=== PATIENT | female | born 1945 | race Caucasian/White ===

== ENCOUNTER 2017-05-14 14:41 | Emergency (ER) | payer OTHER ==
[2017-05-14] MEDS: morphine 2 MG INJ IV (17:53)
[2017-05-14] MEDS: CEFEPIME 2GM/50 ML (PMX) 50 ML IVPB (17:54)
[2017-05-14] MEDS: ONDANSETRON 4 MG INJ IV (17:54)
[2017-05-14] MEDS: SODIUM CHLORIDE 0.9% 1L BAG IV* (17:54)
[2017-05-14 18:07] LABS: ADD MAN DIFF? NO
[2017-05-14 18:09] LABS: ABNORMAL IP MESSAGE 1; BASOPHILS % 0.4 % (0.0-2.0); EOSINOPHILS # 0.1 10^3/ul (0.0-0.5); EOSINOPHILS % 0.5 % (0.0-7.0); HEMATOCRIT 47.2 % (37.0-47.0); HEMOGLOBIN 14.8 g/dl (12.0-16.0); LYMPHOCYTES # 2.7 10^3/ul (0.8-2.9); LYMPHOCYTES % 28.4 % (15.0-51.0); MEAN CORPUSCULAR HEMOGLOBIN 24.4 pg (29.0-33.0); MEAN CORPUSCULAR HGB CONC 31.4 g/dl (32.0-37.0); MEAN CORPUSCULAR VOLUME 77.8 fl (82.0-101.0); MONOCYTE # 0.7 10^3/ul (0.3-0.9); MONOCYTES % 7.9 % (0.0-11.0); NEUTROPHIL # 5.9 10^3/ul (1.6-7.5); NEUTROPHILS % 62.6 % (39.0-77.0); PLATELET COUNT 201 10^3/UL (140-415); RED BLOOD COUNT 6.07 10^6/ul (4.20-5.40); RED CELL DISTRIBUTION WIDTH 18.2 % (11.5-14.5)
[2017-05-14 18:09] LABS: WHITE BLOOD COUNT 9.4 10^3/ul (4.8-10.8)
[2017-05-14 18:14] LABS: MEAN PLATELET VOLUME 12.8 fl (7.4-10.4); POSITIVE DIFF @See below
[2017-05-14 18:23] LABS: LACTIC ACID 1.4 mmol/L (0.5-2.0)
[2017-05-14 18:26] LABS: INR 1.06; PARTIAL THROMBOPLASTIN TIME 30.9 Sec (25.0-35.0); PROTIME 13.9 Sec (11.9-14.9); PT RATIO 1.1
[2017-05-14 18:27] LABS: ALANINE AMINOTRANSFERASE 69 IU/L (13-69); ALBUMIN 4.4 g/dl (3.3-4.9); ALKALINE PHOSPHATASE 79 IU/L (42-121); ANION GAP 14 (8-16); ASPARTATE AMINO TRANSFERASE 63 IU/L (15-46); BILIRUBIN,INDIRECT 0.3 mg/dl (0-1.1); BILIRUBIN,TOTAL 0.3 mg/dl (0.2-1.3); BLOOD UREA NITROGEN 10 mg/dl (7-20); CALCIUM 8.6 mg/dl (8.4-10.2); CARBON DIOXIDE 25 mmol/L (21-31); CHLORIDE 103 mmol/L (97-110); CREATININE 0.75 mg/dl (0.44-1.00); GLUCOSE 123 mg/dl (70-220); POTASSIUM 3.4 mmol/L (3.5-5.1); SODIUM 139 mmol/L (135-144); TOTAL PROTEIN 8.8 g/dl (6.1-8.1)
[2017-05-14 18:39] LABS: TROPONIN-I < 0.012 ng/ml (0.00-0.12)
[2017-05-14 19:52] LABS: LACTIC ACID 1.5 mmol/L (0.5-2.0)
[2017-05-14 20:16] LABS: ADD UMIC NO; UR ASCORBIC ACID NEGATIVE (NEGATIVE); UR BILIRUBIN (Dip) NEGATIVE (NEGATIVE); UR BLOOD (Dip) NEGATIVE (NEGATIVE); UR CLARITY CLEAR (CLEAR); UR COLOR STRAW (YELLOW); UR GLUCOSE (Dip) NEGATIVE (NEGATIVE); UR KETONES (Dip) TRACE mg/dL (NEGATIVE); UR LEUKOCYTE ESTERASE (Dip) NEGATIVE Leu/ul (NEGATIVE); UR NITRITE (Dip) NEGATIVE (NEGATIVE); UR SPECIFIC GRAVITY (Dip) 1.008 (1.003-1.030); UR TOTAL PROTEIN (Dip) NEGATIVE (NEGATIVE); UR UROBILINOGEN (Dip) NEGATIVE (NEGATIVE)
== END 2017-05-14 21:40 | disposition home or self-care (01) ==
LOC: E/R 21:40
DX: A41.9 Sepsis, unspecified organism (principal); K52.9 Noninfective gastroenteritis and colitis, unspecified; I10 Essential (primary) hypertension; Z79.82 Long term (current) use of aspirin
CPT/HCPCS: 71045; 80053; 81003; 83605; 84484; 85025; 85610; 85730; 87040; 87086; 93005; 96374; 96375; 99291-25

== ENCOUNTER 2017-06-09 18:54 | Emergency (ER) | payer OTHER ==
[2017-06-09 23:17] LABS: ADD MAN DIFF? NO
[2017-06-09 23:19] LABS: ABNORMAL IP MESSAGE 1; BASOPHIL # 0.1 10^3/ul (0.0-0.1); BASOPHILS % 0.5 % (0.0-2.0); EOSINOPHILS # 0.2 10^3/ul (0.0-0.5); EOSINOPHILS % 0.9 % (0.0-7.0); HEMATOCRIT 44.1 % (37.0-47.0); HEMOGLOBIN 13.9 g/dl (12.0-16.0); LYMPHOCYTES # 3.5 10^3/ul (0.8-2.9); LYMPHOCYTES % 20.5 % (15.0-51.0); MEAN CORPUSCULAR HEMOGLOBIN 24.4 pg (29.0-33.0); MEAN CORPUSCULAR HGB CONC 31.5 g/dl (32.0-37.0); MEAN CORPUSCULAR VOLUME 77.5 fl (82.0-101.0); MEAN PLATELET VOLUME 12.1 fl (7.4-10.4); MONOCYTE # 0.7 10^3/ul (0.3-0.9); MONOCYTES % 4.3 % (0.0-11.0); NEUTROPHIL # 12.5 10^3/ul (1.6-7.5); NEUTROPHILS % 73.4 % (39.0-77.0); PLATELET COUNT 183 10^3/UL (140-415); RED BLOOD COUNT 5.69 10^6/ul (4.20-5.40); RED CELL DISTRIBUTION WIDTH 17.6 % (11.5-14.5)
[2017-06-09 23:22] LABS: POSITIVE DIFF @See below
[2017-06-09 23:56] LABS: ALANINE AMINOTRANSFERASE 71 IU/L (13-69); ALBUMIN 4.6 g/dl (3.3-4.9); ALBUMIN/GLOBULIN RATIO 1.21; ALKALINE PHOSPHATASE 96 IU/L (42-121); ANION GAP 20 (8-16); ASPARTATE AMINO TRANSFERASE 51 IU/L (15-46); BILIRUBIN,INDIRECT 0.2 mg/dl (0-1.1); BILIRUBIN,TOTAL 0.2 mg/dl (0.2-1.3); BLOOD UREA NITROGEN 8 mg/dl (7-20); CARBON DIOXIDE 25 mmol/L (21-31); CHLORIDE 104 mmol/L (97-110); CREATININE 0.65 mg/dl (0.44-1.00); GLUCOSE 130 mg/dl (70-220); POTASSIUM 4.3 mmol/L (3.5-5.1); SODIUM 145 mmol/L (135-144); TOTAL PROTEIN 8.4 g/dl (6.1-8.1)
[2017-06-10 00:06] LABS: B-TYPE NATRIURETIC PEPTIDE 116 PG/ML (0-125)
[2017-06-10 00:07] LABS: TROPONIN-I < 0.012 ng/ml (0.00-0.12)
[2017-06-10] MEDS: KETOROLAC 15 MG INJ IV (00:36)
== END 2017-06-10 01:57 | disposition home or self-care (01) ==
LOC: E/R 06-10 01:57
DX: J02.9 Acute pharyngitis, unspecified (principal); R07.89 Other chest pain; I10 Essential (primary) hypertension; R40.2142 Coma scale, eyes open, spontaneous, at arrival to emergency department; R40.2252 Coma scale, best verbal response, oriented, at arrival to emergency department; R40.2362 Coma scale, best motor response, obeys commands, at arrival to emergency department
CPT/HCPCS: 36415; 71045; 80053; 83880; 84484; 85025; 93005; 96374; 99285-25

== ENCOUNTER 2017-08-18 19:06 | Emergency (ER) | payer OTHER | END 2017-08-18 21:50 | disposition home or self-care (01) | LOC: FTE 19:06 | DX: M79.604 Pain in right leg (principal); I10 Essential (primary) hypertension | CPT/HCPCS: 93971; 99284-25 ==

== ENCOUNTER 2018-04-21 15:59 | Emergency (ER) | payer OTHER ==
[2018-04-21 17:06] LABS: ADD MAN DIFF? NO
[2018-04-21 17:11] LABS: WHITE BLOOD COUNT 11.1 10^3/ul (4.8-10.8)
[2018-04-21 17:11] LABS: ABNORMAL IP MESSAGE 1; BASOPHIL # 0.1 10^3/ul (0.0-0.1); BASOPHILS % 0.8 % (0.0-2.0); EOSINOPHILS # 0.2 10^3/ul (0.0-0.5); EOSINOPHILS % 1.6 % (0.0-7.0); HEMATOCRIT 46.5 % (37.0-47.0); HEMOGLOBIN 14.4 g/dl (12.0-16.0); LYMPHOCYTES # 4.5 10^3/ul (0.8-2.9); LYMPHOCYTES % 40.7 % (15.0-51.0); MEAN CORPUSCULAR HEMOGLOBIN 23.6 pg (29.0-33.0); MEAN CORPUSCULAR VOLUME 76.2 fl (82.0-101.0); MONOCYTE # 0.9 10^3/ul (0.3-0.9); MONOCYTES % 8.5 % (0.0-11.0); NEUTROPHIL # 5.3 10^3/ul (1.6-7.5); NEUTROPHILS % 48.1 % (39.0-77.0); PLATELET COUNT 243 10^3/UL (140-415); RED CELL DISTRIBUTION WIDTH 16.8 % (11.5-14.5)
[2018-04-21 17:16] LABS: POSITIVE DIFF @See below
[2018-04-21 17:26] LABS: ADD UMIC YES; UR ASCORBIC ACID NEGATIVE (NEGATIVE); UR BACTERIA FEW /HPF (NONE SEEN); UR BILIRUBIN (Dip) NEGATIVE (NEGATIVE); UR BLOOD (Dip) NEGATIVE (NEGATIVE); UR CLARITY SLIGHTLY CLOUDY (CLEAR); UR COLOR YELLOW (YELLOW); UR GLUCOSE (Dip) NEGATIVE (NEGATIVE); UR KETONES (Dip) NEGATIVE (NEGATIVE); UR LEUKOCYTE ESTERASE (Dip) 1+ Leu/ul (NEGATIVE); UR NITRITE (Dip) NEGATIVE (NEGATIVE); UR RBC 1 /HPF (0-5); UR SPECIFIC GRAVITY (Dip) 1.006 (1.003-1.030); UR SQUAMOUS EPITHELIAL CELL MODERATE /HPF (FEW); UR TOTAL PROTEIN (Dip) NEGATIVE (NEGATIVE); UR TRANSITIONAL EPI CELL FEW /HPF (NONE SEEN); UR UROBILINOGEN (Dip) NEGATIVE (NEGATIVE); UR WBC 7 /HPF (0-5)
[2018-04-21] MEDS: SOD CHLORIDE 0.9% 1,000 ML IV (17:30)
[2018-04-21 17:33] LABS: ALANINE AMINOTRANSFERASE 25 IU/L (13-69); ALBUMIN 4.7 g/dl (3.3-4.9); ALKALINE PHOSPHATASE 152 IU/L (42-121); ANION GAP 12 (5-13); ASPARTATE AMINO TRANSFERASE 34 IU/L (15-46); BILIRUBIN,INDIRECT 0.1 mg/dl (0-1.1); BILIRUBIN,TOTAL 0.1 mg/dl (0.2-1.3); BLOOD UREA NITROGEN 14 mg/dl (7-20); CALCIUM 9.6 mg/dl (8.4-10.2); CARBON DIOXIDE 27 mmol/L (21-31); CHLORIDE 105 mmol/L (97-110); CREATININE 0.66 mg/dl (0.44-1.00); Estimated GFR > 60 mL/min (>60); GLUCOSE 116 mg/dl (70-220); POTASSIUM 4.1 mmol/L (3.5-5.1); SODIUM 144 mmol/L (135-144); TOTAL PROTEIN 9.3 g/dl (6.1-8.1)
[2018-04-21 17:34] LABS: ALBUMIN/GLOBULIN RATIO 1.02
[2018-04-21 17:45] LABS: B-TYPE NATRIURETIC PEPTIDE 25 PG/ML (0-125); TROPONIN-I < 0.012 ng/ml (0.000-0.120)
[2018-04-21 18:27] LABS: D-DIMER 357.45 ng/ml (<460)
== END 2018-04-21 18:55 | disposition home or self-care (01) ==
LOC: E/R 15:59
DX: R06.02 Shortness of breath (principal); R40.2252 Coma scale, best verbal response, oriented, at arrival to emergency department; R40.2362 Coma scale, best motor response, obeys commands, at arrival to emergency department; R40.2142 Coma scale, eyes open, spontaneous, at arrival to emergency department; I11.0 Hypertensive heart disease with heart failure; I50.30 Unspecified diastolic (congestive) heart failure
CPT/HCPCS: 36415; 71045; 80053; 81001; 83605; 83880; 84484; 85025; 85378; 93005; 99285-25